=== PATIENT | male | born 1965 | race Caucasian/White ===

== ENCOUNTER 2016-12-23 11:12 | Inpatient (IN) | payer OTHER ==
--- NOTE | 2016-12-23 12:20 | C.PDOC ---
History Of Present Illness 51 year old patient, with a past medical history of hypothyroidism and hypertension, presents to the ED complaining of 2-3 episodes of blood around stool for the past week. Patient notes profuse rectal bleeding with a lot of blood today which prompted the visit today. Patient admits to drinking alcohol daily. Patient denies any rectal pain, fever, nausea, vomiting, or abdominal pain. He reports having a bowel movement every day without any strain. He has no history of hemorrhoids or rectal bleeding. Time Seen by Provider: 12/23/16 12:18 Chief Complaint (Nursing): GI Problem History Per: Patient History/Exam Limitations: no limitations Onset/Duration Of Symptoms: Other (1 week) Current Symptoms Are (Timing): Still Present Number Of Bleeding Episodes: Multiple: Severity: None Pain Scale Rating Of: 0 Quality Of Discomfort: Unable To Describe Recent travel outside of the [place]: No Past Medical History Reviewed: Historical Data, Nursing Documentation, Vital Signs Vital Signs: Last Vital Signs Temp 98.2 F 12/23/16 14:39 Pulse 84 12/23/16 14:39 Resp 20 12/23/16 14:39 BP 122/74 12/23/16 14:39 Pulse Ox 97 12/23/16 14:49 - Medical History PMH: HTN, Hypothyroidism Family History: States: Unknown Family Hx - Social History Hx Alcohol Use: Yes Hx Substance Use: No - Immunization History Hx Tetanus Toxoid Vaccination: No Hx Influenza Vaccination: No Hx Pneumococcal Vaccination: No Review Of Systems Except As Marked, All Systems Reviewed And Found Negative. Constitutional: Negative for: Fever Gastrointestinal: Positive for: Other (blood in stool). Negative for: Nausea, Vomiting, Abdominal Pain, Rectal Pain Physical Exam - Physical Exam Appears: Non-toxic, No Acute Distress Skin: Warm, Dry Head: Atraumatic, Normacephalic Neck: Normal ROM, Supple Chest: Symmetrical Cardiovascular: Rhythm Regular Respiratory: Normal Breath Sounds, No Rales, No Rhonchi, No Wheezing Gastrointestinal/Abdominal: Soft, No Tenderness Rectal: No Hemorrhoids, No Mass, No Tenderness, Other (bright red blood in vault ) Back: Normal Inspection Extremity: Normal ROM Neurological/Psych: Oriented x3 Gait: Steady ED Course And Treatment - Laboratory Results Result Diagrams: 12/23/16 14:15 12/23/16 12:31 Lab Interpretation: No Acute Changes O2 Sat by Pulse Oximetry: 97 (room air) Pulse Ox Interpretation: Normal Progress Note: Plan: Labs. Patient has blood in stool on rectal exam. Hb repeated in 1.5h and mild decreased in hemoglobin noted. Case discussed with Dr. Santacruz who agreed with the plan and accepted the patient. Disposition Counseled Patient/Family Regarding: Studies Performed, Diagnosis - Disposition Disposition: HOSPITALIZED Disposition Time: 14:28 Condition: STABLE - POA Present On Arrival: None - Clinical Impression Clinical Impression: Rectal bleed - PA / CREDIT RISK ANALYST / Resident Statement MD/DO has reviewed & agrees with the documentation as recorded. - Scribe Statement The provider has reviewed the documentation as recorded by the Scribe So Solomon All medical record entries made by the Scribe were at my direction and personally dictated by me. I have reviewed the chart and agree that the record accurately reflects my personal performance of the history, physical exam, medical decision making, and the department course for this patient. I have also personally directed, reviewed, and agree with the discharge instructions and disposition. Decision To Admit - Pt Status Changed To: Hospital Disposition Of: Observation - . Bed Request Type: Telemetry Admitting Physician: Nikos Santacruz Patient Diagnosis: Rectal bleed
[2016-12-23 12:40] LABS: BASO % 0.6 % (0.0-2.0); EOS # 0.1 K/uL (0.0-0.7); EOS % 1.9 % (0.0-4.0); HEMATOCRIT 43.5 % (35.0-51.0); LYMPH # 2.1 K/uL (1.0-4.3); LYMPH % 31.7 % (20.0-40.0); MEAN CELL VOLUME 87.5 fL (80.0-94.0); MEAN CORPUSCULAR HEMOGLOBIN 28.6 pg (27.0-31.0); MEAN CORPUSCULAR HGB CONC 32.7 g/dL (33.0-37.0); MEAN PLATELET VOLUME 6.8 fL (7.2-11.7); MONO # 0.5 K/uL (0.0-0.8); MONO % 7.8 % (0.0-10.0); RED CELL DISTRIBUTION WIDTH 13.5 % (11.5-14.5); WHITE BLOOD COUNT 6.6 K/uL (4.8-10.8)
[2016-12-23 12:44] LABS: RBC URINE 2 /hpf (0-3); URINE BILIRUBIN NEGATIVE (NEGATIVE); URINE BLOOD 1+ (NEGATIVE); URINE COLOR Yellow (YELLOW); URINE GLUCOSE (UA) NORMAL (Normal); URINE KETONE NEGATIVE (NEGATIVE); URINE LEUKOCYTE ESTERASE NEG Leu/uL (Negative); URINE PROTEIN NEGATIVE (NEGATIVE); URINE UROBILINOGEN NORMAL mg/dL (0.2-1.0); WBC URINE 1 /hpf (0-5)
[2016-12-23 12:47] LABS: CHLORIDE 99 mmol/L (98-107); SODIUM 140 mmol/L (132-148)
[2016-12-23 12:48] LABS: POTASSIUM 4.4 mmol/L (3.6-5.2)
[2016-12-23 12:50] LABS: ALB/GLOB RATIO 1.4 (1.0-2.1); ALKALINE PHOSPHATASE 70 U/L (38-126); ALT/SGPT 50 U/L (21-72); AST/SGOT 50 U/L (17-59); BILIRUBIN,TOTAL 0.8 mg/dL (0.2-1.3); BLOOD UREA NITROGEN 11 mg/dL (9-20); CARBON DIOXIDE 25 mmol/L (22-30); GFR AFRICAN-AMERICAN > 60; GLUCOSE,RANDOM 96 mg/dL (75-110)
[2016-12-23 12:51] LABS: ALCOHOL SERUM < 10 mg/dl (0-10); CALCIUM 9.3 mg/dl (8.6-10.4)
[2016-12-23 14:14] LABS: HEMATOCRIT 42.6 % (35.0-51.0); MEAN CELL VOLUME 87.2 fL (80.0-94.0); MEAN CORPUSCULAR HEMOGLOBIN 28.2 pg (27.0-31.0); MEAN CORPUSCULAR HGB CONC 32.4 g/dL (33.0-37.0); MEAN PLATELET VOLUME 6.6 fL (7.2-11.7); RED CELL DISTRIBUTION WIDTH 13.8 % (11.5-14.5)
--- NOTE | 2016-12-23 15:18 | CP.PCM.HP ---
Addendum entered and electronically signed by Yasmine Restrepo DO 12/23/16 15: 34: Correction: GI consult - Dr. Vallejo - f/u recs Original Note: <Yasmine Restrepo - Last Filed: 12/23/16 15:09> History of Present Illness - History of Present Illness History of Present Illness: CC: "bleeding per rectum" HPI: Patient is a 51 year old male with PMHx of seasonal allergies, HTN and hypothyroidism presenting for 4 weeks of intermittent rectal bleeding. Patient reports bleeding started on November 21. He says he would have rectal bleeding of 1 to 2 teaspoons at a time for 3-4 days, it would go away for 3-4 days, come back, etc. Patient saw his primary care doctor on November 24 and was told to come to ER if it happened again. Patient does not have insurance so he was waiting until he had insurance. This past week he had 1-2 teaspoons of rectal bleeding on Saturday, Saturday, Saturday. Then it went away. Today he had bright red blood per rectum filling the bowl. Patient decided he needed to come in. 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 He recently got a new car and says the seat is harder. Patient also reports starting gingo biloba 3-4 months ago. Patient says he has been eating more so he has gained 2-3 pounds over the past few months. Patient reports bleeding from his nose when he sneezes a lot. Patient denies diet change, change in bowel movements, recent travel, diarrhea, constipation, abdominal pain, nausea, vomiting, fevers, chills, dizziness, recent falls. Patient reports fatigue secondary to poor sleeping. PMD: Dr. 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 absent: Chills, Fever, Headache, Weight Loss, Weakness - EENT Eyes: absent: Change in Vision Ears: absent: Dizziness Nose/Mouth/Throat: Epistaxis (intermittent when sneezing) - Cardiovascular Cardiovascular: absent: Chest Pain, Dyspnea - Respiratory Respiratory: absent: Cough, Dyspnea, Hemoptysis - Gastrointestinal Gastrointestinal: Hematochezia. absent: Abdominal Pain, Constipation, Diarrhea , Nausea, Vomiting - Genitourinary Genitourinary: absent: Dysuria, Hematuria - Musculoskeletal Musculoskeletal: absent: Back Pain, Numbness - Integumentary Integumentary: absent: Skin Pain, Wounds - Neurological Neurological: absent: Dizziness, Headaches - Endocrine Endocrine: Fatigue. absent: Palpitations - Hematologic/Lymphatic Hematologic: Easy Bleeding. 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 Alcohol: > 2 Drinks/Day Drugs: Denies Home Situation {Lives}: With Family - CARDIAC Hx Hypertension: Yes - ENDOCRINE/METABOLIC Hx Hypothyroidism: Yes - PSYCHIATRIC Hx Substance Use: No - SURGICAL HISTORY Hx Surgeries: Yes Other/Comment: tennis elbow - ANESTHESIA Hx Anesthesia: Yes Hx Anesthesia Reactions: No Meds Allergies/Adverse Reactions: Allergies Allergy/AdvReac Type Severity Reaction Status Date / Time Penicillins Allergy RASH Verified 12/23/16 11:38 Physical Exam - Constitutional Appears: Non-toxic, No Acute Distress - Head Exam Head Exam: NORMAL INSPECTION - Eye Exam Eye Exam: Conjunctival injection, EOMI - ENT Exam ENT Exam: Mucous Membranes Moist - Respiratory Exam Respiratory Exam: Clear to Auscultation Bilateral, NORMAL BREATHING PATTERN. absent: Rales, Rhonchi, Wheezes - Cardiovascular Exam Cardiovascular Exam: REGULAR RHYTHM, +S1, +S2. absent: Gallop, Rubs, Systolic Murmur - GI/Abdominal Exam GI & Abdominal Exam: Normal Bowel Sounds, Soft. absent: Distended, Firm, Guarding, Tenderness - Rectal Exam Additional comments: no external hemorrhoids bloody stool on LORE by PA No LORE performed by hospitalist team as PA had just done it - Extremities Exam Extremities exam: Negative for: pedal edema - Neurological Exam Neurological exam: Alert, Oriented x3 - Psychiatric Exam Psychiatric exam: Normal Affect, Normal Mood - Skin Skin Exam: Normal Color, Warm Results - Vital Signs Recent Vital Signs: Last Vital Signs Temp 98.2 F 12/23/16 14:39 Pulse 84 12/23/16 14:39 Resp 20 12/23/16 14:39 BP 122/74 12/23/16 14:39 Pulse Ox 97 12/23/16 14:49 - Labs Result Diagrams: 12/23/16 14:15 12/23/16 12:31 Assessment & Plan - Assessment and Plan (Free Text) Assessment: GI bleed Stool occult blood positive Hgb/Hct: 13.8/42.6 Monitor CBC Q6H Stop Gingo Biloba No chemical anticoagulation Protonix 40mg IVP Q12H NS 60cc/hr GI consult - Dr. Syed - f/u recs H/O HTN Holding lisinopril 20mg PO daily in case patient becomes hypotensive secondary to blood loss Monitor BPs H/O hypothyroid Continue home levothyroxine 75mcg PO daily F/U TSH Seasonal allergies Naphazoline/Pheniramine 0.05ml OP BID Prophylaxis SCDs Protonix 40mg IVP Q12H No chemical anticoagulation secondary to GI bleed <Nikos Santacruz - Last Filed: 02/01/17 12:56> Results - Vital Signs Recent Vital Signs: Last Vital Signs Temp 98.1 F 12/26/16 16:44 Pulse 89 12/26/16 16:44 Resp 20 12/26/16 16:44 BP 105/67 12/26/16 16:44 Pulse Ox 98 12/26/16 16:44 - Labs Result Diagrams: 12/26/16 11:43 12/26/16 11:43 Attending/Attestation - Attestation I have personally seen and examined this patient.: Yes I have fully participated in the care of the patient.: Yes I have reviewed all pertinent clinical information: Yes Notes (Text): Patient Seen and examined with the resident. Agree with the resident's evaluation, assessment and plan. GI bleed H/O HTN H/O hypothyroid Seasonal allergies
[2016-12-23] MEDS: Sodium Chloride 0.9% 1,000 ML IV SCH (16:38)
[2016-12-23] MEDS: Naphazoline-Pheniramine Ophth Soln OP SCH (20:20)
[2016-12-23 21:25] LABS: HEMATOCRIT 41.8 % (35.0-51.0); MEAN CELL VOLUME 87.4 fL (80.0-94.0); MEAN CORPUSCULAR HEMOGLOBIN 28.6 pg (27.0-31.0); MEAN CORPUSCULAR HGB CONC 32.8 g/dL (33.0-37.0); MEAN PLATELET VOLUME 6.8 fL (7.2-11.7); RED CELL DISTRIBUTION WIDTH 13.4 % (11.5-14.5); WHITE BLOOD COUNT 7.6 K/uL (4.8-10.8)
[2016-12-24] MEDS: Levothyroxine 75 MCG TAB PO SCH (05:52)
[2016-12-24 08:36] LABS: HEMATOCRIT 41.2 % (35.0-51.0); MEAN CELL VOLUME 87.5 fL (80.0-94.0); MEAN CORPUSCULAR HEMOGLOBIN 28.8 pg (27.0-31.0); MEAN CORPUSCULAR HGB CONC 32.9 g/dL (33.0-37.0); MEAN PLATELET VOLUME 6.9 fL (7.2-11.7); RED CELL DISTRIBUTION WIDTH 13.4 % (11.5-14.5); WHITE BLOOD COUNT 6.7 K/uL (4.8-10.8)
[2016-12-24 08:44] LABS: CHLORIDE 100 mmol/L (98-107)
[2016-12-24 08:45] LABS: POTASSIUM 4.2 mmol/L (3.6-5.2); SODIUM 134 mmol/L (132-148)
[2016-12-24 08:47] LABS: ALB/GLOB RATIO 1.4 (1.0-2.1); AST/SGOT 42 U/L (17-59); BILIRUBIN,TOTAL 0.6 mg/dL (0.2-1.3); CARBON DIOXIDE 25 mmol/L (22-30); GFR AFRICAN-AMERICAN > 60; TOTAL PROTEIN 7.2 g/dL (6.3-8.3)
[2016-12-24 08:48] LABS: ALKALINE PHOSPHATASE 59 U/L (38-126); ALT/SGPT 47 U/L (21-72); BLOOD UREA NITROGEN 9 mg/dL (9-20); CALCIUM 8.8 mg/dl (8.6-10.4); GLUCOSE,RANDOM 96 mg/dL (75-110)
[2016-12-24] MEDS: Multiple Vitamins Oral Solution PO SCH (09:32)
[2016-12-24] MEDS: Naphazoline-Pheniramine Ophth Soln OP SCH (09:32)
--- NOTE | 2016-12-24 13:40 | RAD ---
PROCEDURE: CHEST RADIOGRAPH, 1 VIEW HISTORY: r/o perforation COMPARISON: None available. FINDINGS: LUNGS: Mild venous congestion. PLEURA: No pneumothorax or pleural fluid seen. CARDIOVASCULAR: Mild cardiomegaly. OSSEOUS STRUCTURES: No significant abnormalities. VISUALIZED UPPER ABDOMEN: Normal. OTHER FINDINGS: None. IMPRESSION: Mild venous congestion.
[2016-12-24] MEDS ORDERED: Iohexol 350mg/ml 100 ML ONE (15:09)
[2016-12-24] MEDS ORDERED: Iohexol 240 (50 ml) PO ONE (15:15)
--- NOTE | 2016-12-24 17:29 | CP.PCM.CON ---
History of Present Illness - History of Present Illness History of Present Illness: CC: Rectal bleed HPI: GI service consult requested for this year old man admitted with rectal bleeding. Patient first saw [facility] 1 month ago but was small amount and he saw his doctor who is monitoring it. he then saw more copious red bleeding yesterday and came to the ER. He denies abdominal pain. Hgb levels are stable in hospital. He is now about to go into CT and has drunk oral contrast. No bleeding witnessed since in hospital. Past Patient History - Past Medical History & Family History Past Medical History?: Yes - Past Social History Smoking Status: Never Smoked - CARDIAC Hx Hypertension: Yes - PULMONARY Hx Respiratory Disorders: No - NEUROLOGICAL Hx Neurological Disorder: No - HEENT Hx HEENT Problems: No - RENAL Hx Chronic Kidney Disease: No - ENDOCRINE/METABOLIC Hx Endocrine Disorders: Yes Hx Hypothyroidism: Yes - HEMATOLOGICAL/ONCOLOGICAL Hx Blood Disorders: No - INTEGUMENTARY Hx Dermatological Problems: No - MUSCULOSKELETAL/RHEUMATOLOGICAL Hx Musculoskeletal Disorders: No Hx Falls: No - GASTROINTESTINAL Hx Gastrointestinal Disorders: No - GENITOURINARY/GYNECOLOGICAL Hx Genitourinary Disorders: No - PSYCHIATRIC Hx Psychophysiologic Disorder: No Hx Substance Use: No - SURGICAL HISTORY Hx Surgeries: Yes Other/Comment: tennis elbow - ANESTHESIA Hx Anesthesia: Yes Hx Anesthesia Reactions: No Hx Malignant Hyperthermia: No Has any member of the family had a problem w/ anesthesia?: No Meds Allergies/Adverse Reactions: Allergies Allergy/AdvReac Type Severity Reaction Status Date / Time Penicillins Allergy RASH Verified 12/23/16 11:38 - Medications Medications: Current Medications Sodium Chloride (Sodium Chloride 0.9%) 1,000 mls @ 60 mls/hr IV .[id number] [facility] Last Admin: 12/23/16 16:38 Dose: 60 mls/hr Levothyroxine Sodium (Synthroid) 75 mcg PO DAILY@0630 [facility] Last Admin: 12/24/16 05:52 Dose: 75 mcg Lisinopril (Zestril) 20 mg PO DAILY [facility] Last Admin: 12/24/16 17:11 Dose: 20 mg Multivitamins/Vitamin C (Multi-Delyn Liquid) 5 ml PO DAILY [facility] Last Admin: 12/24/16 09:32 Dose: 5 ml Pantoprazole Sodium (Protonix Inj) 40 mg IVP Q12 [facility] Last Admin: 12/24/16 09:32 Dose: 40 mg Pneumococcal Polyvalent Vaccine (Pneumovax 23 Vaccine) 0.5 ml IM .ONCE ONE Stop: 12/26/16 10:01 Physical Exam - Head Exam Head Exam: NORMOCEPHALIC - Eye Exam Eye Exam: absent: Scleral icterus - ENT Exam ENT Exam: Normal Exam - Neck Exam Neck exam: Positive for: Normal Inspection - Respiratory Exam Respiratory Exam: Clear to Auscultation Bilateral - Cardiovascular Exam Cardiovascular Exam: REGULAR RHYTHM - GI/Abdominal Exam GI & Abdominal Exam: Soft. absent: Organomegaly, Tenderness Results - Vital Signs Recent Vital Signs: Last Vital Signs Temp 97.4 F L 12/24/16 16:05 Pulse 69 12/24/16 16:05 Resp 20 12/24/16 16:05 BP 152/107 H 12/24/16 16:05 Pulse Ox 97 12/24/16 16:05 - Labs Result Diagrams: 12/24/16 08:23 12/24/16 08:23 Labs: Laboratory Results - last 24 hr 12/23/16 12/24/16 12/24/16 20:54 08:23 08:23 WBC 7.6 6.7 RBC 4.79 4.71 Hgb 13.7 13.5 Hct 41.8 41.2 MCV 87.4 87.5 MCH 28.6 28.8 MCHC 32.8 L 32.9 L RDW 13.4 13.4 Plt Count 308 308 MPV 6.8 L 6.9 L Sodium 134 Potassium 4.2 Chloride 100 Carbon Dioxide 25 Anion Gap 14 BUN 9 Creatinine 0.9 Est GFR ( Amer) > 60 Est GFR (Non-Af Amer) > 60 Random Glucose 96 Calcium 8.8 Total Bilirubin 0.6 AST 42 ALT 47 Alkaline Phosphatase 59 Total Protein 7.2 Albumin 4.2 Globulin 3.0 Albumin/Globulin Ratio 1.4 TSH 3rd Generation 4.00 Assessment & Plan (1) Rectal bleed Assessment and Plan: Stable. Consider hemorrhoids, polyps, AVMs etc. Patient is currently in CT, and has no further bleeding rec; Check CT. Colonoscopy either Wed or as outpatient. Status: Acute
--- NOTE | 2016-12-24 18:35 | CP.PCM.PN ---
<Khadar Patten - Last Filed: 12/24/16 18:38> Subjective - Date & Time of Evaluation Date of Evaluation: 12/24/16 Time of Evaluation: 18:35 - Subjective Subjective: Medicine progress note. Attending: Dr. Yousif Pt seen and examined at bedside. No acute distress. Pt was having some abd pain but no more bleeding. Pt had upright CXR which was negative for perforation. CT abdomen/pelvis pending. GI saw and has plans for colonoscopy this week. Denies fevers, chills, bleeding, nausea, vomiting, diarrhea. Objective - Vital Signs/Intake and Output Vital Signs (last 24 hours): Temp Pulse Resp BP Pulse Ox 97.4 F L 72 20 152/107 H 97 12/24/16 16:05 12/24/16 17:24 12/24/16 16:05 12/24/16 16:05 12/24/16 16:05 Intake and Output: 12/24/16 12/24/16 06:59 18:59 Intake Total 1450 Balance 1450 - Medications Medications: Current Medications Sodium Chloride (Sodium Chloride 0.9%) 1,000 mls @ 60 mls/hr IV .[id number] [facility] Last Admin: 12/23/16 16:38 Dose: 60 mls/hr Levothyroxine Sodium (Synthroid) 75 mcg PO DAILY@0630 [facility] Last Admin: 12/24/16 05:52 Dose: 75 mcg Lisinopril (Zestril) 20 mg PO DAILY [facility] Last Admin: 12/24/16 17:11 Dose: 20 mg Multivitamins/Vitamin C (Multi-Delyn Liquid) 5 ml PO DAILY [facility] Last Admin: 12/24/16 09:32 Dose: 5 ml Pantoprazole Sodium (Protonix Inj) 40 mg IVP Q12 [facility] Last Admin: 12/24/16 09:32 Dose: 40 mg Pneumococcal Polyvalent Vaccine (Pneumovax 23 Vaccine) 0.5 ml IM .ONCE ONE Stop: 12/26/16 10:01 - Labs Labs: 12/24/16 08:23 12/24/16 08:23 PT 11.4 SECONDS (9.7-12.2) 12/23/16 12:31 INR 1.0 12/23/16 12:31 APTT 31 SECONDS (21-34) 12/23/16 12:31 - Constitutional Appears: Non-toxic, No Acute Distress - Head Exam Head Exam: ATRAUMATIC, NORMAL INSPECTION, NORMOCEPHALIC - Eye Exam Eye Exam: EOMI - ENT Exam ENT Exam: Mucous Membranes Moist - Neck Exam Neck Exam: Full ROM, Normal Inspection - Respiratory Exam Respiratory Exam: NORMAL BREATHING PATTERN - Cardiovascular Exam Cardiovascular Exam: REGULAR RHYTHM, +S1, +S2 - GI/Abdominal Exam GI & Abdominal Exam: Soft, Normal Bowel Sounds. absent: Tenderness - Extremities Exam Extremities Exam: Full ROM, Normal Inspection - Back Exam Back Exam: NORMAL INSPECTION - Neurological Exam Neurological Exam: Alert, Awake, Oriented x3 - Psychiatric Exam Psychiatric exam: Normal Affect, Normal Mood - Skin Skin Exam: Dry, Intact, Normal Color, Warm Assessment and Plan - Assessment and Plan (Free Text) Assessment: This is a 51 yo male with past medical hx of HTN and hypothyroidism presenting with rectal bleeding. 1. Rectal bleeding -GI consult with Dr. Elliott. recs appreciated -CXR negative for perforation -CT abdomen/pelvis pending -continue NS 60 cc/hr -continue to monitor for any drops in HGB/blood loss 2. Hx of HTN -continue to monitor -hold off on bp meds at this time 3. Hx of hypothyroidism -continue synthroid daily 4. hx of seasonal allergies -monitor for now -per PMD, pt not on any meds for allergies 5. GI/DVT ppx -protonix daily -SCDs dw Dr. Yousif <Dominique Yousif V - Last Filed: 12/24/16 22:47> Objective - Vital Signs/Intake and Output Vital Signs (last 24 hours): Temp Pulse Resp BP Pulse Ox 97.4 F L 77 20 132/90 97 12/24/16 16:05 12/24/16 19:03 12/24/16 16:05 12/24/16 19:03 12/24/16 16:05 Intake and Output: 12/24/16 12/25/16 18:59 06:59 Intake Total 1450 Balance 1450 - Medications Medications: Current Medications Sodium Chloride (Sodium Chloride 0.9%) 1,000 mls @ 60 mls/hr IV .[id number] [facility] Last Admin: 12/23/16 16:38 Dose: 60 mls/hr Levothyroxine Sodium (Synthroid) 75 mcg PO DAILY@0630 [facility] Last Admin: 12/24/16 05:52 Dose: 75 mcg Lisinopril (Zestril) 20 mg PO DAILY [facility] Last Admin: 12/24/16 17:11 Dose: 20 mg Multivitamins/Vitamin C (Multi-Delyn Liquid) 5 ml PO DAILY [facility] Last Admin: 12/24/16 09:32 Dose: 5 ml Pantoprazole Sodium (Protonix Inj) 40 mg IVP Q12 [facility] Last Admin: 12/24/16 21:48 Dose: 40 mg Pneumococcal Polyvalent Vaccine (Pneumovax 23 Vaccine) 0.5 ml IM .ONCE ONE Stop: 12/26/16 10:01 - Labs Labs: 12/24/16 08:23 12/24/16 08:23 PT 11.4 SECONDS (9.7-12.2) 12/23/16 12:31 INR 1.0 12/23/16 12:31 APTT 31 SECONDS (21-34) 12/23/16 12:31 Attending/Attestation - Attestation I have personally seen and examined this patient.: Yes I have fully participated in the care of the patient.: Yes I have reviewed all pertinent clinical information, including history, physical exam and plan: Yes Notes (Text): Patient seen, examined, and case discussed with day-time resident. Patient seen, examined during morning round. Patient reporting LLQ abdominal pain during rounds and tender to palpation. Patient reports he had not has bowel movement for about 1.5 days during rounds. Patient ordered for chest xray. No acute findings. Patient ordered for CT abdomen PO and IV contrast. No acute findings. Patient reports he has an episode of rectal bleeding later this evening following completed CT scan. Will continue Protonix and follow-up CBC. Patient reports daily whiskey use at home. Patient denies any withdrawal symptoms related alcohol use. Patient restarted on his blood pressure medication. Assessment/Plan 1) Rectal bleeding * GI consult (Dr. Vallejo); Dr. Elliott covering--->help appreciated * Patient has not completed baseline colonoscopy; denies fam hx of colon cancer. * Patient reporting frequent rectal bleedingi * Chest xray (12/24/16): no acute findings * CT Abdomen/Pelvis PO and IV contrast (12/24/16): unremarkable * Protonix 40mg IVP Q12H * monitor H/H; 13.5 today 2) H/O HTN * elevated and uncontrolled today * Restarted Lisinopril 20mg PO daily * Monitor vital signs 3) H/O hypothyroid * Continue home levothyroxine 75mcg PO daily * TSH: 4.00 4) Seasonal allergies * d/c Naphazoline/Pheniramine 0.05ml OP BID-->confirmed with patient outpatient doctor patient is not on eye drops 5) Prophylaxis * SCDs * Protonix 40mg IVP Q12H * No chemical anticoagulation secondary to GI bleed 6) Disposition * f/u with GI to determine if patient will need inpatient workup * Patient has restarting in rectal bleeding; will need to monitor H/H
--- NOTE | 2016-12-24 18:36 | CT ---
PROCEDURE: CT Abdomen and Pelvis with contrast HISTORY: abdominal pain , LLQ COMPARISON: None. TECHNIQUE: Contrast dose: 100 cc of Omnipaque 300 Radiation dose: Total exam DLP = 767 mGy-cm. This CT exam was performed using one or more of the following dose reduction techniques: Automated exposure control, adjustment of the mA and/or kV according to patient size, and/or use of iterative reconstruction technique. FINDINGS: LOWER THORAX: Unremarkable. LIVER: Unremarkable. No gross lesion or ductal dilatation. GALLBLADDER AND BILE DUCTS: Unremarkable. PANCREAS: Unremarkable. No gross lesion or ductal dilatation. SPLEEN: Unremarkable. ADRENALS: Unremarkable. No mass. KIDNEYS AND URETERS: Unremarkable. No hydronephrosis. No solid mass. VASCULATURE: Unremarkable. No aortic aneurysm. BOWEL: Unremarkable. No obstruction. No gross mural thickening. APPENDIX: Normal appendix. PERITONEUM: Unremarkable. No free fluid. No free air. LYMPH NODES: Unremarkable. No enlarged lymph nodes. BLADDER: Unremarkable. REPRODUCTIVE: Unremarkable. BONES: No acute fracture. OTHER FINDINGS: None. IMPRESSION: Unremarkable contrast enhanced CT of the abdomen and pelvis.
[2016-12-24 22:34] LABS: HEMATOCRIT 39.1 % (35.0-51.0); MEAN CELL VOLUME 86.6 fL (80.0-94.0); MEAN CORPUSCULAR HEMOGLOBIN 28.6 pg (27.0-31.0); MEAN PLATELET VOLUME 6.7 fL (7.2-11.7); RED CELL DISTRIBUTION WIDTH 13.3 % (11.5-14.5); WHITE BLOOD COUNT 7.7 K/uL (4.8-10.8)
[2016-12-25] MEDS: Levothyroxine 75 MCG TAB PO SCH (05:52)
[2016-12-25 07:29] LABS: BASO # 0.1 K/uL (0.0-0.2); BASO % 0.6 % (0.0-2.0); EOS # 0.1 K/uL (0.0-0.7); EOS % 1.4 % (0.0-4.0); LYMPH # 3.2 K/uL (1.0-4.3); MEAN CELL VOLUME 88.3 fL (80.0-94.0); MEAN CORPUSCULAR HEMOGLOBIN 28.7 pg (27.0-31.0); MEAN CORPUSCULAR HGB CONC 32.5 g/dL (33.0-37.0); MEAN PLATELET VOLUME 6.7 fL (7.2-11.7); MONO # 0.6 K/uL (0.0-0.8); MONO % 6.9 % (0.0-10.0); NRBC % 0.1 % (0.0-2.0); RED CELL DISTRIBUTION WIDTH 13.4 % (11.5-14.5)
[2016-12-25 07:50] LABS: INR 1.1
--- NOTE | 2016-12-25 08:34 | CP.PCM.PN ---
Subjective - Date & Time of Evaluation Date of Evaluation: 12/25/16 Time of Evaluation: 08:31 - Subjective Subjective: Gi Service F/U for Rb Pt reports slight RB with BM. Hb is stable Denies fever, chills, CP, SOB, HDZ, cough Pt reports he was aware that he was getting CT yest and then colonoscopy saturday. Objective - Vital Signs/Intake and Output Vital Signs (last 24 hours): Temp Pulse Resp BP Pulse Ox 98.0 F 83 20 149/96 H 99 12/25/16 05:54 12/25/16 05:54 12/25/16 05:54 12/25/16 05:54 12/25/16 05:54 Intake and Output: 12/25/16 12/25/16 06:59 18:59 Intake Total 300 Balance 300 - Medications Medications: Current Medications Sodium Chloride (Sodium Chloride 0.9%) 1,000 mls @ 60 mls/hr IV .[id number] [facility] Last Admin: 12/23/16 16:38 Dose: 60 mls/hr Levothyroxine Sodium (Synthroid) 75 mcg PO DAILY@0630 [facility] Last Admin: 12/25/16 05:52 Dose: 75 mcg Lisinopril (Zestril) 20 mg PO DAILY [facility] Last Admin: 12/25/16 05:53 Dose: 20 mg Multivitamins/Vitamin C (Multi-Delyn Liquid) 5 ml PO DAILY [facility] Last Admin: 12/24/16 09:32 Dose: 5 ml Pantoprazole Sodium (Protonix Inj) 40 mg IVP Q12 [facility] Last Admin: 12/24/16 21:48 Dose: 40 mg Pneumococcal Polyvalent Vaccine (Pneumovax 23 Vaccine) 0.5 ml IM .ONCE ONE Stop: 12/26/16 10:01 - Labs Labs: 12/25/16 07:20 PT 12.3 SECONDS (9.7-12.2) H 12/25/16 07:20 INR 1.1 12/25/16 07:20 APTT 31 SECONDS (21-34) 12/23/16 12:31 - Constitutional Appears: Well - Neck Exam Neck Exam: absent: Tenderness - Respiratory Exam Respiratory Exam: Clear to Ausculation Bilateral - Cardiovascular Exam Cardiovascular Exam: RRR - GI/Abdominal Exam GI & Abdominal Exam: Soft, Normal Bowel Sounds. absent: Tenderness - Extremities Exam Extremities Exam: absent: Calf Tenderness - Neurological Exam Neurological Exam: Alert, Awake, Oriented x3 Assessment and Plan (1) Rectal bleed Assessment & Plan: Hb is stable. Consider diverticulosis, hemorrhoids , polyp REC: colonosocpy saturday. Case discussed with patient for 20 minutes Status: Acute
[2016-12-25 08:50] LABS: CHLORIDE 99 mmol/L (98-107); POTASSIUM 3.8 mmol/L (3.6-5.2); SODIUM 136 mmol/L (132-148)
[2016-12-25 08:52] LABS: ALB/GLOB RATIO 1.3 (1.0-2.1); ALKALINE PHOSPHATASE 65 U/L (38-126); AST/SGOT 44 U/L (17-59); BILIRUBIN,TOTAL 0.9 mg/dL (0.2-1.3); BLOOD UREA NITROGEN 7 mg/dL (9-20); CARBON DIOXIDE 22 mmol/L (22-30); GFR AFRICAN-AMERICAN > 60; TOTAL PROTEIN 7.6 g/dL (6.3-8.3)
[2016-12-25 08:53] LABS: ALT/SGPT 41 U/L (21-72); CALCIUM 8.9 mg/dl (8.6-10.4); GLUCOSE,RANDOM 103 mg/dL (75-110); MAGNESIUM 2.1 mg/dL (1.6-2.3)
[2016-12-25] MEDS: Multiple Vitamins Oral Solution PO SCH (10:25)
--- NOTE | 2016-12-25 13:15 | CP.PCM.PN ---
<Khadar Patten - Last Filed: 12/25/16 13:15> Subjective - Date & Time of Evaluation Date of Evaluation: 12/25/16 Time of Evaluation: 13:15 - Subjective Subjective: Medicine progress note. Attending: Dr. Yousif Pt seen and examined at bedside. No acute distress. Pt was apparently taken down to have colonoscopy this morning, but was not told he was scheduled and was not given prep. Colonoscopy now scheduled for tomorrow. HGB stable, but pt did have 3 additional BMS with blood overnight. Denies any further bleeding. Denies fevers, chills, vomiting, dizziness, abdominal pain. Objective - Vital Signs/Intake and Output Vital Signs (last 24 hours): Temp Pulse Resp BP Pulse Ox 97.6 F 78 20 132/80 97 12/25/16 07:35 12/25/16 07:35 12/25/16 07:35 12/25/16 07:35 12/25/16 07:35 Intake and Output: 12/25/16 12/25/16 06:59 18:59 Intake Total 300 Balance 300 - Medications Medications: Current Medications Sodium Chloride (Sodium Chloride 0.9%) 1,000 mls @ 60 mls/hr IV .[id number] [facility] Last Admin: 12/23/16 16:38 Dose: 60 mls/hr Levothyroxine Sodium (Synthroid) 75 mcg PO DAILY@0630 [facility] Last Admin: 12/25/16 05:52 Dose: 75 mcg Lisinopril (Zestril) 20 mg PO DAILY [facility] Last Admin: 12/25/16 10:28 Dose: Not Given Multivitamins/Vitamin C (Multi-Delyn Liquid) 5 ml PO DAILY [facility] Last Admin: 12/25/16 10:25 Dose: 5 ml Pantoprazole Sodium (Protonix Inj) 40 mg IVP Q12 [facility] Last Admin: 12/25/16 10:25 Dose: 40 mg Pneumococcal Polyvalent Vaccine (Pneumovax 23 Vaccine) 0.5 ml IM .ONCE ONE Stop: 12/26/16 10:01 Polyethylene Glycol/Electrolytes (Golytely) 4,000 ml PO ONCE ONE Stop: 12/25/16 19:01 - Labs Labs: 12/25/16 07:20 12/25/16 07:20 PT 12.3 SECONDS (9.7-12.2) H 12/25/16 07:20 INR 1.1 12/25/16 07:20 APTT 31 SECONDS (21-34) 12/23/16 12:31 - Constitutional Appears: Non-toxic, No Acute Distress - Head Exam Head Exam: ATRAUMATIC, NORMAL INSPECTION, NORMOCEPHALIC - Eye Exam Eye Exam: EOMI - ENT Exam ENT Exam: Mucous Membranes Moist - Respiratory Exam Respiratory Exam: Clear to Ausculation Bilateral, NORMAL BREATHING PATTERN. absent: Respiratory Distress - Cardiovascular Exam Cardiovascular Exam: +S1, +S2 - GI/Abdominal Exam GI & Abdominal Exam: Soft, Normal Bowel Sounds. absent: Tenderness - Extremities Exam Extremities Exam: Full ROM, Normal Inspection - Back Exam Back Exam: NORMAL INSPECTION - Neurological Exam Neurological Exam: Alert, Awake, Oriented x3 - Psychiatric Exam Psychiatric exam: Normal Affect, Normal Mood - Skin Skin Exam: Dry, Intact, Normal Color, Warm Assessment and Plan - Assessment and Plan (Free Text) Assessment: This is a 51 yo male with past medical hx of HTN, hypothyrodism presenting with rectal bleeding 1. Rectal bleeding - stool occult blood positive -urine drug screen negative -pt did have 3 bloody BMs overnight -HGB this morning 14.3 up from 12.9 last night -colonoscopy planned for Sat -GI consult. recs appreciated -CXR is negative -CT abdomen/pelvis was unremarkable -continue protonix 40 q 12 2. Hx of HTN -continue lisinopril 20 daily 3. Hx of hypothyroidism -synthroid 75 daily -TSH 4 4 GI/DVT ppx -continue protonix q 12 -SCDs discussed with Dr. Yousif <Dominique Yousif V - Last Filed: 12/25/16 22:34> Objective - Vital Signs/Intake and Output Vital Signs (last 24 hours): Temp Pulse Resp BP Pulse Ox 97.7 F 83 20 126/89 97 12/25/16 16:57 12/25/16 19:04 12/25/16 16:57 12/25/16 16:57 12/25/16 16:57 Intake and Output: 12/25/16 12/26/16 18:59 06:59 Intake Total 110 400 Balance 110 400 - Medications Medications: Current Medications Sodium Chloride (Sodium Chloride 0.9%) 1,000 mls @ 60 mls/hr IV .[id number] [facility] Last Admin: 12/25/16 16:54 Dose: 60 mls/hr Levothyroxine Sodium (Synthroid) 75 mcg PO DAILY@0630 [facility] Last Admin: 12/25/16 05:52 Dose: 75 mcg Lisinopril (Zestril) 20 mg PO DAILY [facility] Last Admin: 12/25/16 10:28 Dose: Not Given Multivitamins/Vitamin C (Multi-Delyn Liquid) 5 ml PO DAILY [facility] Last Admin: 12/25/16 10:25 Dose: 5 ml Pantoprazole Sodium (Protonix Inj) 40 mg IVP Q12 [facility] Last Admin: 12/25/16 21:46 Dose: 40 mg Pneumococcal Polyvalent Vaccine (Pneumovax 23 Vaccine) 0.5 ml IM .ONCE ONE Stop: 12/26/16 10:01 - Labs Labs: 12/25/16 07:20 12/25/16 07:20 PT 12.3 SECONDS (9.7-12.2) H 12/25/16 07:20 INR 1.1 12/25/16 07:20 APTT 31 SECONDS (21-34) 12/23/16 12:31 Attending/Attestation - Attestation I have personally seen and examined this patient.: Yes I have fully participated in the care of the patient.: Yes I have reviewed all pertinent clinical information, including history, physical exam and plan: Yes Notes (Text): Patient seen, examined, and case discussed with day-time resident. Patient seen, examined during morning round. Patient reported he had additional 3 episodes overnight of rectal bleeding without effort. Patient to be NPO after midnight for colonoscopy tomorrow per GI. Clarified with nursing staff. Assessment/Plan 1) Rectal bleeding * GI consult (Dr. Vallejo); Dr. Elliott covering--->help appreciated * Patient has not completed baseline colonoscopy; denies fam hx of colon cancer. * Patient reporting frequent rectal bleedingi * Chest xray (12/24/16): no acute findings * CT Abdomen/Pelvis PO and IV contrast (12/24/16): unremarkable * Protonix 40mg IVP Q12H * monitor H/H; 14 today * NPO after midnight-->colonoscopy tomorrow 2) H/O HTN * elevated and uncontrolled today * Restarted Lisinopril 20mg PO daily * Monitor vital signs 3) H/O hypothyroid * Continue home levothyroxine 75mcg PO daily * TSH: 4.00 4) Seasonal allergies * d/c Naphazoline/Pheniramine 0.05ml OP BID-->confirmed with patient outpatient doctor patient is not on eye drops 5) Prophylaxis * SCDs * Protonix 40mg IVP Q12H * No chemical anticoagulation secondary to GI bleed * NPO after midnight 6) Disposition * Patient to be NPO after midnight for colonoscopy tomorrow.
[2016-12-25] MEDS: Sodium Chloride 0.9% 1,000 ML IV SCH (16:54)
[2016-12-25] MEDS ORDERED: Peg-Electrolyte Oral Soln 4L (Golytely) PO ONE (19:00)
[2016-12-25] MEDS ORDERED: Nitroglycerin 2% Ointment Foilpak UD TOP ONE (22:11)
[2016-12-26] MEDS: Levothyroxine 75 MCG TAB PO SCH (06:01)
[2016-12-26] MEDS ORDERED: Pneumococcal 23-Valent Vaccine IM ONE (10:00)
[2016-12-26] MEDS: Multiple Vitamins Oral Solution PO SCH (10:39)
[2016-12-26] MEDS: Sodium Chloride 0.9% 1,000 ML IV SCH (10:59)
[2016-12-26 11:51] LABS: HEMATOCRIT 40.2 % (35.0-51.0); MEAN CELL VOLUME 87.8 fL (80.0-94.0); MEAN CORPUSCULAR HEMOGLOBIN 29.3 pg (27.0-31.0); MEAN CORPUSCULAR HGB CONC 33.3 g/dL (33.0-37.0); MEAN PLATELET VOLUME 6.9 fL (7.2-11.7); RED CELL DISTRIBUTION WIDTH 13.1 % (11.5-14.5); WHITE BLOOD COUNT 8.1 K/uL (4.8-10.8)
[2016-12-26] MEDS ORDERED: Lactated Ringer's 500 ML IV ONE (12:06)
[2016-12-26] MEDS ORDERED: Propofol 10 mg/ml Inj (20 ML) ONE (12:08)
[2016-12-26] MEDS ORDERED: Lidocaine Hydrochloride 5 ML INJ ONE (12:08)
[2016-12-26 12:15] LABS: CHLORIDE 99 mmol/L (98-107); SODIUM 136 mmol/L (132-148)
[2016-12-26 12:16] LABS: POTASSIUM 3.6 mmol/L (3.6-5.2)
[2016-12-26 12:17] LABS: GFR AFRICAN-AMERICAN > 60
[2016-12-26 12:18] LABS: ALB/GLOB RATIO 1.4 (1.0-2.1); ALKALINE PHOSPHATASE 62 U/L (38-126); ALT/SGPT 51 U/L (21-72); AST/SGOT 52 U/L (17-59); BILIRUBIN,TOTAL 0.9 mg/dL (0.2-1.3); BLOOD UREA NITROGEN 7 mg/dL (9-20); CALCIUM 8.9 mg/dl (8.6-10.4); CARBON DIOXIDE 24 mmol/L (22-30); GLUCOSE,RANDOM 95 mg/dL (75-110); PHOSPHOROUS 4.1 mg/dL (2.5-4.5); TOTAL PROTEIN 7.2 g/dL (6.3-8.3)
[2016-12-26 12:19] LABS: MAGNESIUM 1.9 mg/dL (1.6-2.3)
--- NOTE | 2016-12-26 16:01 | CP.PCM.PN ---
<Khadar Patten - Last Filed: 12/26/16 16:01> Subjective - Date & Time of Evaluation Date of Evaluation: 12/26/16 Time of Evaluation: 16:00 - Subjective Subjective: Medicine progress note. Attending: Dr. Yousif Pt seen and examined at bedside. Did have a couple more episodes of rectal bleeding overnight. No acute distress. Pt will have colonoscopy today. Denies fevers, chills, chest pain, sob, vomiting, syncope. HGB stable. Objective - Vital Signs/Intake and Output Vital Signs (last 24 hours): Temp Pulse Resp BP Pulse Ox 98.4 F 67 25 H 142/97 H 100 12/26/16 12:27 12/26/16 12:57 12/26/16 12:57 12/26/16 12:57 12/26/16 12:57 Intake and Output: 12/26/16 12/26/16 06:59 18:59 Intake Total 500 Balance 500 - Medications Medications: Current Medications Sodium Chloride (Sodium Chloride 0.9%) 1,000 mls @ 60 mls/hr IV .[id number] [facility] Last Admin: 12/26/16 10:59 Dose: Not Given Levothyroxine Sodium (Synthroid) 75 mcg PO DAILY@0630 [facility] Last Admin: 12/26/16 06:01 Dose: 75 mcg Lisinopril (Zestril) 20 mg PO DAILY [facility] Last Admin: 12/26/16 10:39 Dose: Not Given Multivitamins/Vitamin C (Multi-Delyn Liquid) 5 ml PO DAILY [facility] Last Admin: 12/26/16 10:39 Dose: Not Given Pantoprazole Sodium (Protonix Inj) 40 mg IVP Q12 [facility] Last Admin: 12/26/16 10:58 Dose: 40 mg - Labs Labs: 12/26/16 11:43 12/26/16 11:43 PT 12.3 SECONDS (9.7-12.2) H 12/25/16 07:20 INR 1.1 12/25/16 07:20 APTT 31 SECONDS (21-34) 12/23/16 12:31 - Constitutional Appears: Non-toxic, No Acute Distress - Head Exam Head Exam: ATRAUMATIC, NORMAL INSPECTION, NORMOCEPHALIC - Eye Exam Eye Exam: EOMI - ENT Exam ENT Exam: Mucous Membranes Moist - Neck Exam Neck Exam: Full ROM, Normal Inspection - Respiratory Exam Respiratory Exam: Clear to Ausculation Bilateral, NORMAL BREATHING PATTERN - Cardiovascular Exam Cardiovascular Exam: REGULAR RHYTHM, +S1, +S2 - GI/Abdominal Exam GI & Abdominal Exam: Soft, Normal Bowel Sounds. absent: Tenderness - Neurological Exam Neurological Exam: Alert, Awake, Oriented x3 - Psychiatric Exam Psychiatric exam: Normal Affect, Normal Mood - Skin Skin Exam: Dry, Intact, Normal Color, Warm Assessment and Plan - Assessment and Plan (Free Text) Assessment: This is a 51 yo male with past medical hx of HTN, hypothyrodism presenting with rectal bleeding 1. Rectal bleeding - stool occult blood positive -urine drug screen negative -pt did have 2 more bloody BMs overnight -HGB this morning 13.4, stable -colonoscopy planned for today -GI consult. recs appreciated -CXR is negative -CT abdomen/pelvis was unremarkable -continue protonix 40 q 12 -we will follow up results of colonoscopy 2. Hx of HTN -continue lisinopril 20 daily 3. Hx of hypothyroidism -synthroid 75 daily -TSH 4 4 GI/DVT ppx -continue protonix q 12 -SCDs discussed with Dr. Yousif <Dominique Yousif V - Last Filed: 12/26/16 21:08> Objective - Vital Signs/Intake and Output Vital Signs (last 24 hours): Temp Pulse Resp BP Pulse Ox 98.1 F 89 20 105/67 98 12/26/16 16:44 12/26/16 16:44 12/26/16 16:44 12/26/16 16:44 12/26/16 16:44 Intake and Output: 12/26/16 12/27/16 18:59 06:59 Intake Total 480 Balance 480 - Labs Labs: 12/26/16 11:43 12/26/16 11:43 PT 12.3 SECONDS (9.7-12.2) H 12/25/16 07:20 INR 1.1 12/25/16 07:20 APTT 31 SECONDS (21-34) 12/23/16 12:31 Attending/Attestation - Attestation I have personally seen and examined this patient.: Yes I have fully participated in the care of the patient.: Yes I have reviewed all pertinent clinical information, including history, physical exam and plan: Yes Notes (Text): Patient seen, examined, and case discussed with day-time resident. Patient seen, examined during morning rounds prior to colonoscopy. Patient scheduled for colonoscopy at 12pm. Had received bowel preparation and is currently NPO. Patient reported he had additional 2 episodes overnight of rectal bleeding. Patient denies other complaints. Patient seen post-colonoscopy, patient reports he is doing well. Denies acute complaints and would like to go home. Discussed with the patient regarding colonoscopy per report, non-bleeding internal hemorrhoids, polyp which was biopsy. that he will need to follow-up with Dr. Elliott (GI) regarding biopsy result and advised to cut down on his alcohol use. Patient advised to not take any aspirin, NSAID, and cessation alcohol in the meantime. Assessment/Plan 1) Rectal bleeding * GI consult (Dr. Vallejo); Dr. Elliott covering--->help appreciated * Patient has not completed baseline colonoscopy; denies fam hx of colon cancer. * Chest xray (12/24/16): no acute findings * CT Abdomen/Pelvis PO and IV contrast (12/24/16): unremarkable * Protonix 40mg IVP Q12H * monitor H/H; 13.4 today (stable during hospitalization) * Colonoscopy (12/26/16): non-bleeding internal hemorrhoids, one diminutive polyp in the rectum. resected and retrieved. Patient to follow-up outpatient for biopsy result. * Per discharge instructions: Discussed with the patient regarding colonoscopy per report, non-bleeding internal hemorrhoids, polyp which was biopsy. that he will need to follow-up with Dr. Elliott (GI) regarding biopsy result and advised to cut down on his alcohol use. Patient advised to not take any aspirin, NSAID, and cessation alcohol in the meantime. 2) H/O HTN * Monitor vital signs * Per discharge instructions, patient to resume Lisinopril 20mg PO daily. 3) H/O hypothyroid * Continue home levothyroxine 75mcg PO daily * TSH: 4.00 * Per discharge instructions, patient to resume Synthroid 75mcg PO qAM 4) Seasonal allergies * d/c Naphazoline/Pheniramine 0.05ml OP BID-->confirmed with patient outpatient doctor patient is not on eye drops 5) Disposition * Patient is medically stable for discharge status post colonoscopy. Patient denies acute complaints status post colonscopy. Patient advised to not take any aspirin, NSAID, and cessation alcohol in the meantime.
[2016-12-26 16:45] VITALS: BP 105/67; PULSE 89; RESP 20; TEMP 98.1; O2SAT 98
--- NOTE | 2016-12-26 17:34 | CP.PCM.DIS ---
<Khadar Patten - Last Filed: 12/26/16 17:37> Provider - Provider Date of Admission: 12/24/16 22:29 Attending physician: Nikos Santacruz MD Consults: Consults: BRITNEY Elliott Time Spent in preparation of Discharge (in minutes): 45 Hospital Course - Lab Results Lab Results: Most Recent Lab Values WBC 8.1 K/uL (4.8-10.8) 12/26/16 11:43 RBC 4.58 Mil/uL (4.40-5.90) 12/26/16 11:43 Hgb 13.4 g/dL (12.0-18.0) 12/26/16 11:43 Hct 40.2 % (35.0-51.0) 12/26/16 11:43 MCV 87.8 fL (80.0-94.0) 12/26/16 11:43 MCH 29.3 pg (27.0-31.0) 12/26/16 11:43 MCHC 33.3 g/dL (33.0-37.0) 12/26/16 11:43 RDW 13.1 % (11.5-14.5) 12/26/16 11:43 Plt Count 292 K/uL (130-400) 12/26/16 11:43 MPV 6.9 fL (7.2-11.7) L 12/26/16 11:43 Neut % (Auto) 56.1 % (50.0-75.0) 12/25/16 07:20 Lymph % (Auto) 35.0 % (20.0-40.0) 12/25/16 07:20 Morrow % (Auto) 6.9 % (0.0-10.0) 12/25/16 07:20 Eos % (Auto) 1.4 % (0.0-4.0) 12/25/16 07:20 Baso % (Auto) 0.6 % (0.0-2.0) 12/25/16 07:20 Neut # 5.1 K/uL (1.8-7.0) 12/25/16 07:20 Lymph # 3.2 K/uL (1.0-4.3) 12/25/16 07:20 Morrow # 0.6 K/uL (0.0-0.8) 12/25/16 07:20 Eos # 0.1 K/uL (0.0-0.7) 12/25/16 07:20 Baso # 0.1 K/uL (0.0-0.2) 12/25/16 07:20 PT 12.3 SECONDS (9.7-12.2) H 12/25/16 07:20 INR 1.1 12/25/16 07:20 APTT 31 SECONDS (21-34) 12/23/16 12:31 Sodium 136 mmol/L (132-148) 12/26/16 11:43 Potassium 3.6 mmol/L (3.6-5.2) 12/26/16 11:43 Chloride 99 mmol/L (98-107) 12/26/16 11:43 Carbon Dioxide 24 mmol/L (22-30) 12/26/16 11:43 Anion Gap 16 (10-20) 12/26/16 11:43 BUN 7 mg/dL (9-20) L 12/26/16 11:43 Creatinine 0.9 MG/DL (0.8-1.5) 12/26/16 11:43 Est GFR ( Amer) > 60 12/26/16 11:43 Est GFR (Non-Af Amer) > 60 12/26/16 11:43 Random Glucose 95 mg/dL (75-110) 12/26/16 11:43 Calcium 8.9 mg/dl (8.6-10.4) 12/26/16 11:43 Phosphorus 4.1 mg/dL (2.5-4.5) 12/26/16 11:43 Magnesium 1.9 mg/dL (1.6-2.3) 12/26/16 11:43 Total Bilirubin 0.9 mg/dL (0.2-1.3) 12/26/16 11:43 AST 52 U/L (17-59) 12/26/16 11:43 ALT 51 U/L (21-72) 12/26/16 11:43 Alkaline Phosphatase 62 U/L (38-126) 12/26/16 11:43 Total Protein 7.2 g/dL (6.3-8.3) 12/26/16 11:43 Albumin 4.2 g/dL (3.5-5.0) 12/26/16 11:43 Globulin 3.0 gm/dL (2.2-3.9) 12/26/16 11:43 Albumin/Globulin Ratio 1.4 (1.0-2.1) 12/26/16 11:43 TSH 3rd Generation 4.00 mIU/L (0.46-4.68) 12/24/16 08:23 Urine Color Yellow (YELLOW) 12/23/16 12:31 Urine Clarity Clear (Clear) 12/23/16 12:31 Urine pH 5.0 (5.0-8.0) 12/23/16 12:31 Ur Specific [place] 1.013 (1.003-1.030) 12/23/16 12:31 Urine Protein Negative mg/dL (NEGATIVE) 12/23/16 12:31 Urine Glucose (UA) Normal mg/dL (Normal) 12/23/16 12:31 Urine Ketones Negative mg/dL (NEGATIVE) 12/23/16 12:31 Urine Blood 1+ (NEGATIVE) H 12/23/16 12:31 Urine Nitrate Negative (NEGATIVE) 12/23/16 12:31 Urine Bilirubin Negative (NEGATIVE) 12/23/16 12:31 Urine Urobilinogen Normal mg/dL (0.2-1.0) 12/23/16 12:31 Ur Leukocyte Esterase Neg Jennifer/uL (Negative) 12/23/16 12:31 Urine WBC (Auto) 1 /hpf (0-5) 12/23/16 12:31 Urine RBC (Auto) 2 /hpf (0-3) 12/23/16 12:31 Ur Squamous Epith Cells < 1 /hpf (0-5) 12/23/16 12:31 Stool Occult Blood Positive (NEGATIVE) H 12/23/16 13:05 Urine Opiates Screen Negative (NEGATIVE) 12/23/16 12:31 Urine Methadone Screen Negative (NEGATIVE) 12/23/16 12:31 Ur Barbiturates Screen Negative (NEGATIVE) 12/23/16 12:31 Ur Phencyclidine Scrn Negative (NEGATIVE) 12/23/16 12:31 Ur Amphetamines Screen Negative (NEGATIVE) 12/23/16 12:31 U Benzodiazepines Scrn Negative (NEGATIVE) 12/23/16 12:31 U Oth Cocaine Metabols Negative (NEGATIVE) 12/23/16 12:31 U Cannabinoids Screen Negative (NEGATIVE) 12/23/16 12:31 Alcohol, Quantitative < 10 mg/dl (0-10) 12/23/16 12:31 Blood Type O POSITIVE 12/23/16 15:18 Antibody Screen Negative 12/23/16 15:18 - Hospital Course Hospital Course: Attending: Dr. Yousif Condition on dc: stable Discharge diagnoses 1. Rectal polyp 2. rectal bleeding 3. allergies 4. HTN 5. hypothyroidism Procedures: colonoscopy Complications: none Consults: BRITNEY-Lexi HPI: see h/p Lab data: see lab section Hospital course Patient is a 51 year old male with past medical hx of seasonal allergies, HTN and hypothyroidism presenting for 4 weeks of intermittent rectal bleeding. Patient reports bleeding started on November 21. He says he would have rectal bleeding of 1 to 2 teaspoons at a time for 3-4 days, it would go away for 3-4 days, come back, etc. Patient saw his primary care doctor on November 24 and was told to come to ER if it happened again. Patient does not have insurance so he was waiting until he had insurance. This past week he had 1-2 teaspoons of rectal bleeding on Saturday, Saturday, Saturday. Then it went away. Today he had bright red blood per rectum filling the bowl. Patient decided he needed to come in. 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 He recently got a new car and says the seat is harder. Patient also reports starting gingko biloba 3-4 months ago. Patient says he has been eating more so he has gained 2-3 pounds over the past few months. Patient reports bleeding from his nose when he sneezes a lot. Pt was admitted and started on protonix twice a day. HGB remained stable throughout hospital stay. We continued to treat his HTN and hypothyroid. CXR was negative as was CT abdomen/pelvis. He did continue to have more rectal bleeding overnight throughout his hospital stay. He had colonoscopy 5-10 which showed non bleeding internal hemorrhoids and polyp which was resected. He needs to f/u with another colonoscopy in 10 years. On day of discharge, pt was doing well with no complaints. Discharge instructions Pt is medically stable for discharge. Per GI, pt to follow up with Dr. Elliott for path results. Please provide office number and address to pt upon discharge. Pt recommended to f/u at [facility] ([phone]) with Resident Dr. Patten, if possible to establish care. New rx 1. anusol cream, to apply rectally (1/no refills) 2. protonix 40 mg PO daily (30/no refills) 3. lisinopril 20 mg daily (30/no refills) Pt to strongly advised to not drink. Discharge meds: 1. anusol 2. lisinopril 3. synthroid 4. protonix - Date & Time of H&P Date of H&P: 12/23/16 Time of H&P: 15:09 Discharge Exam - Head Exam Head Exam: ATRAUMATIC, NORMAL INSPECTION, NORMOCEPHALIC - Eye Exam Eye Exam: EOMI - ENT Exam ENT Exam: Mucous Membranes Moist - Neck Exam Neck exam: Full Rom, Normal Inspection - Respiratory Exam Respiratory Exam: NORMAL BREATHING PATTERN, UNREMARKABLE - Cardiovascular Exam Cardiovascular Exam: +S1, +S2 - GI/Abdominal Exam GI & Abdominal Exam: Normal Bowel Sounds - Extremities Exam Extremities exam: full ROM, normal inspection - Neurological Exam Neurological exam: Alert, Oriented x3 - Psychiatric Exam Psychiatric exam: Normal Affect, Normal Mood - Skin Skin Exam: Dry, Intact, Normal Color, Warm Discharge Plan - Discharge Medications Prescriptions: Lisinopril [Zestril] 20 mg PO DAILY #30 tab Pantoprazole Sodium [Protonix] 40 mg PO DAILY #30 tablet.dr - Follow Up Plan Condition: STABLE Disposition: HOME/ ROUTINE Instructions: Lisinopril (By mouth), Pantoprazole (By mouth), Gastrointestinal Bleeding (DC), Colonoscopy (GEN) Additional Instructions: Pt is medically stable for discharge. Per GI, pt to follow up with Dr. Elliott for path results. Please provide office number and address to pt upon discharge. Pt recommended to f/u at [facility] ([phone]) with Resident Dr. Patten, if possible to establish care. New rx 1. anusol cream, to apply rectally (1/no refills) 2. protonix 40 mg PO daily (30/no refills) 3. lisinopril 20 mg daily (30/no refills) Pt to strongly advised to not drink. Referrals: [facility] [Outside] Aravind Elliott MD [Staff Provider] - <Dominique Yousif Dano - Last Filed: 12/26/16 21:15> Provider - Provider Date of Admission: 12/24/16 22:29 Attending physician: Nikos Santacruz MD Hospital Course - Lab Results Lab Results: Most Recent Lab Values WBC 8.1 K/uL (4.8-10.8) 12/26/16 11:43 RBC 4.58 Mil/uL (4.40-5.90) 12/26/16 11:43 Hgb 13.4 g/dL (12.0-18.0) 12/26/16 11:43 Hct 40.2 % (35.0-51.0) 12/26/16 11:43 MCV 87.8 fL (80.0-94.0) 12/26/16 11:43 MCH 29.3 pg (27.0-31.0) 12/26/16 11:43 MCHC 33.3 g/dL (33.0-37.0) 12/26/16 11:43 RDW 13.1 % (11.5-14.5) 12/26/16 11:43 Plt Count 292 K/uL (130-400) 12/26/16 11:43 MPV 6.9 fL (7.2-11.7) L 12/26/16 11:43 Neut % (Auto) 56.1 % (50.0-75.0) 12/25/16 07:20 Lymph % (Auto) 35.0 % (20.0-40.0) 12/25/16 07:20 [place] % (Auto) 6.9 % (0.0-10.0) 12/25/16 07:20 Eos % (Auto) 1.4 % (0.0-4.0) 12/25/16 07:20 Baso % (Auto) 0.6 % (0.0-2.0) 12/25/16 07:20 Neut # 5.1 K/uL (1.8-7.0) 12/25/16 07:20 Lymph # 3.2 K/uL (1.0-4.3) 12/25/16 07:20 [place] # 0.6 K/uL (0.0-0.8) 12/25/16 07:20 Eos # 0.1 K/uL (0.0-0.7) 12/25/16 07:20 Baso # 0.1 K/uL (0.0-0.2) 12/25/16 07:20 PT 12.3 SECONDS (9.7-12.2) H 12/25/16 07:20 INR 1.1 12/25/16 07:20 APTT 31 SECONDS (21-34) 12/23/16 12:31 Sodium 136 mmol/L (132-148) 12/26/16 11:43 Potassium 3.6 mmol/L (3.6-5.2) 12/26/16 11:43 Chloride 99 mmol/L (98-107) 12/26/16 11:43 Carbon Dioxide 24 mmol/L (22-30) 12/26/16 11:43 Anion Gap 16 (10-20) 12/26/16 11:43 BUN 7 mg/dL (9-20) L 12/26/16 11:43 Creatinine 0.9 MG/DL (0.8-1.5) 12/26/16 11:43 Est GFR ( Amer) > 60 12/26/16 11:43 Est GFR (Non-Af Amer) > 60 12/26/16 11:43 Random Glucose 95 mg/dL (75-110) 12/26/16 11:43 Calcium 8.9 mg/dl (8.6-10.4) 12/26/16 11:43 Phosphorus 4.1 mg/dL (2.5-4.5) 12/26/16 11:43 Magnesium 1.9 mg/dL (1.6-2.3) 12/26/16 11:43 Total Bilirubin 0.9 mg/dL (0.2-1.3) 12/26/16 11:43 AST 52 U/L (17-59) 12/26/16 11:43 ALT 51 U/L (21-72) 12/26/16 11:43 Alkaline Phosphatase 62 U/L (38-126) 12/26/16 11:43 Total Protein 7.2 g/dL (6.3-8.3) 12/26/16 11:43 Albumin 4.2 g/dL (3.5-5.0) 12/26/16 11:43 Globulin 3.0 gm/dL (2.2-3.9) 12/26/16 11:43 Albumin/Globulin Ratio 1.4 (1.0-2.1) 12/26/16 11:43 TSH 3rd Generation 4.00 mIU/L (0.46-4.68) 12/24/16 08:23 Urine Color Yellow (YELLOW) 12/23/16 12:31 Urine Clarity Clear (Clear) 12/23/16 12:31 Urine pH 5.0 (5.0-8.0) 12/23/16 12:31 Ur Specific [place] 1.013 (1.003-1.030) 12/23/16 12:31 Urine Protein Negative mg/dL (NEGATIVE) 12/23/16 12:31 Urine Glucose (UA) Normal mg/dL (Normal) 12/23/16 12:31 Urine Ketones Negative mg/dL (NEGATIVE) 12/23/16 12:31 Urine Blood 1+ (NEGATIVE) H 12/23/16 12:31 Urine Nitrate Negative (NEGATIVE) 12/23/16 12:31 Urine Bilirubin Negative (NEGATIVE) 12/23/16 12:31 Urine Urobilinogen Normal mg/dL (0.2-1.0) 12/23/16 12:31 Ur Leukocyte Esterase Neg Jennifer/uL (Negative) 12/23/16 12:31 Urine WBC (Auto) 1 /hpf (0-5) 12/23/16 12:31 Urine RBC (Auto) 2 /hpf (0-3) 12/23/16 12:31 Ur Squamous Epith Cells < 1 /hpf (0-5) 12/23/16 12:31 Stool Occult Blood Positive (NEGATIVE) H 12/23/16 13:05 Urine Opiates Screen Negative (NEGATIVE) 12/23/16 12:31 Urine Methadone Screen Negative (NEGATIVE) 12/23/16 12:31 Ur Barbiturates Screen Negative (NEGATIVE) 12/23/16 12:31 Ur Phencyclidine Scrn Negative (NEGATIVE) 12/23/16 12:31 Ur Amphetamines Screen Negative (NEGATIVE) 12/23/16 12:31 U Benzodiazepines Scrn Negative (NEGATIVE) 12/23/16 12:31 U Oth Cocaine Metabols Negative (NEGATIVE) 12/23/16 12:31 U Cannabinoids Screen Negative (NEGATIVE) 12/23/16 12:31 Alcohol, Quantitative < 10 mg/dl (0-10) 12/23/16 12:31 Blood Type O POSITIVE 12/23/16 15:18 Antibody Screen Negative 12/23/16 15:18 Attending/Attestation - Attestation I have personally seen and examined this patient.: Yes I have fully participated in the care of the patient.: Yes I have reviewed all pertinent clinical information, including history, physical exam and plan: Yes Notes (Text): Patient seen, examined, and case discussed with day-time resident. Patient seen, examined during morning rounds prior to colonoscopy. Patient scheduled for colonoscopy at 12pm. Had received bowel preparation and is currently NPO. Patient reported he had additional 2 episodes overnight of rectal bleeding. Patient denies other complaints. Patient seen post-colonoscopy, patient reports he is doing well. Denies acute complaints and would like to go home. Discussed with the patient regarding colonoscopy per report, non-bleeding internal hemorrhoids, polyp which was biopsy. that he will need to follow-up with Dr. Elliott (GI) regarding biopsy result and advised to cut down on his alcohol use. Patient advised to not take any aspirin, NSAID, and cessation alcohol in the meantime. Discussed discharge order and instructions with the patient, who has verbalized understanding. Pt is medically stable for discharge. Per GI, pt to follow up with Dr. Elliott for path results. Please provide office number and address to pt upon discharge. Pt recommended to f/u at [facility] ([phone]) with Resident Dr. Patten, if possible to establish care. New Rx: 1. Anusol cream, to apply rectally (1/no refills)-->available over the counter 2. protonix 40 mg PO daily (30/no refills)--> advised if cannot afford, advised OTC pepcid 3. lisinopril 20 mg daily (30/no refills) Pt to strongly advised to not drink. This is a summary of patient's hospitalization. Please see EMR for further details. Assessment/Plan 1) Rectal bleeding * GI consult (Dr. Vallejo); Dr. Elliott covering--->help appreciated * Patient has not completed baseline colonoscopy; denies fam hx of colon cancer. * Chest xray (12/24/16): no acute findings * CT Abdomen/Pelvis PO and IV contrast (12/24/16): unremarkable * Protonix 40mg IVP Q12H * monitor H/H; 13.4 today (stable during hospitalization) * Colonoscopy (12/26/16): non-bleeding internal hemorrhoids, one diminutive polyp in the rectum. resected and retrieved. Patient to follow-up outpatient for biopsy result. * Per discharge instructions: Discussed with the patient regarding colonoscopy per report, non-bleeding internal hemorrhoids, polyp which was biopsy. that he will need to follow-up with Dr. Elliott (GI) regarding biopsy result and advised to cut down on his alcohol use. Patient advised to not take any aspirin, NSAID, and cessation alcohol in the meantime. 2) H/O HTN * Monitor vital signs * Per discharge instructions, patient to resume Lisinopril 20mg PO daily. 3) H/O hypothyroid * Continue home levothyroxine 75mcg PO daily * TSH: 4.00 * Per discharge instructions, patient to resume Synthroid 75mcg PO qAM 4) Seasonal allergies * d/c Naphazoline/Pheniramine 0.05ml OP BID-->confirmed with patient outpatient doctor patient is not on eye drops 5) Disposition * Patient is medically stable for discharge status post colonoscopy. Patient denies acute complaints status post colonscopy. Patient advised to not take any aspirin, NSAID, and cessation alcohol in the meantime.
== END 2016-12-26 19:55 | disposition home or self-care (01) | DRG 188 ==
LOC: C.ER 11:12 → C.9E 14:29 → C.5T 18:35 → OBSVTOIN 12-24 22:29
PROVIDERS: ADMIT Internal Medicine; ATTEND Internal Medicine
PROC: 0DBP8ZZ Excision of Rectum, Via Natural or Artificial Opening Endoscopic (ICD-10-PCS; principal; 2016-12-26 12:11)
DX: K62.1 Rectal polyp (principal); K62.5 Hemorrhage of anus and rectum; I10 Essential (primary) hypertension; E03.9 Hypothyroidism, unspecified; J30.2 Other seasonal allergic rhinitis; Z82.49 Family history of ischemic heart disease and other diseases of the circulatory system; Z80.42 Family history of malignant neoplasm of prostate; K64.0 First degree hemorrhoids